=== PATIENT | female | born 1960 | race Caucasian/White ===

== ENCOUNTER 2021-01-21 12:28 | Emergency (ER) | payer SELFPAY ==
[~2021-01-21] VITALS: Ht 165.1 cm; Wt 63.5 kg
--- NOTE | 2021-01-21 12:42 | NUR ---
PT IS IN ROOM #1A. DR SAUCEDA EVALUATED THE PT.
[2021-01-21] MEDS ORDERED: IV NORMAL SALINE 500 ML BAG IV ONE (13:00)
[2021-01-21] MEDS ORDERED: ONDANSETRON 4 MG/2 ML VIAL IV ONE (13:00)
[2021-01-21] MEDS ORDERED: TDAP DIPH,PERTUSS,TET VAC/PF 0.5 ML DISP.SYRIN IM ONE ×2 (13:00→13:03)
[2021-01-21] MEDS ORDERED: LIDOCAINE 2%-EPI 1:100,000 20 ML VIAL TP ONE (13:00)
[2021-01-21] MEDS ORDERED: HYDROMORPHONE 1 MG/1 ML DISP.SYRIN IVP ONE (13:00)
[2021-01-21] MEDS ORDERED: LIDOCAINE 2%-EPI 1:100,000 20 ML VIAL ONE (13:03)
[2021-01-21] MEDS ORDERED: HYDROMORPHONE 1 MG/1 ML DISP.SYRIN ONE (13:04)
[2021-01-21] MEDS ORDERED: ONDANSETRON 4 MG/2 ML VIAL ONE (14:11)
[2021-01-21] MEDS ORDERED: IBUP-1955 PO (16:04)
[2021-01-21] MEDS ORDERED: OXYC-128 PO (16:04)
[2021-01-21] MEDS ORDERED: CEPH500C2 PO (16:07)
--- NOTE | 2021-01-21 16:22 | NUR ---
pt was d/c'D to home. d/c instructions given to the pt and to her son.
[2021-01-21 16:23] VITALS: BP 135/81
== END 2021-01-21 16:29 | disposition home or self-care (01) ==
LOC: ER 12:28
DX: S06.9X9A Unspecified intracranial injury with loss of consciousness of unspecified duration, initial encounter (principal); S16.1XXA Strain of muscle, fascia and tendon at neck level, initial encounter; S23.41XA Sprain of ribs, initial encounter; S61.411A Laceration without foreign body of right hand, initial encounter; V43.62XA Car passenger injured in collision with other type car in traffic accident, initial encounter; Y92.414 Local residential or business street as the place of occurrence of the external cause; R05 Cough; Z20.822 Contact with and (suspected) exposure to COVID-19; D32.0 Benign neoplasm of cerebral meninges; R40.2362 Coma scale, best motor response, obeys commands, at arrival to emergency department; R40.2142 Coma scale, eyes open, spontaneous, at arrival to emergency department; R40.2252 Coma scale, best verbal response, oriented, at arrival to emergency department; I51.7 Cardiomegaly
CPT/HCPCS: 12001; 12044; 70450; 71045; 72125; 72170; 73110; 73130; 87426; 90471; 90715; 96361; 96374; 96375; 99291; J1170; J2405; A4217; A4663; J7030

== ENCOUNTER 2021-01-24 11:46 | Emergency (ER) | payer OTHER ==
[~2021-01-24] VITALS: Ht 165.1 cm; Wt 63.5 kg
[~2021-01-24 11:46] MED LIST: CEPH500C2 PO; IBUP-1955 PO; OXYC-128 PO
--- NOTE | 2021-01-24 13:39 | NUR ---
PT WAS EVALUATED BY DR SANDOVAL. PT WAS D/C'd TO HOME. D/C INSTRUCTIONS GIVEN TO THE PT BY DR SANDOVAL.
[2021-01-24 13:40] VITALS: BP 137/81
== END 2021-01-24 13:41 | disposition home or self-care (01) ==
LOC: ER 11:46
DX: S61.411D Laceration without foreign body of right hand, subsequent encounter (principal); V49.60XD Unspecified car occupant injured in collision with unspecified motor vehicles in traffic accident, subsequent encounter; M79.641 Pain in right hand
CPT/HCPCS: A4663

== ENCOUNTER 2021-01-31 18:10 | Emergency (ER) | payer OTHER ==
[~2021-01-31] VITALS: Ht 162.6 cm; Wt 63.5 kg
--- NOTE | 2021-01-31 20:25 | NUR ---
Patient placed in a right thumb spica, wound site cleaned and wrapped with non-adherent, and non-conforming bandage. CMS intact
--- NOTE | 2021-01-31 20:31 | NUR ---
Patient discharged to home in stable condition. Written and verbal after care instructions given. Patient verbalizes understanding of instructions. Stressed follow up or return to ER for worsening s/s. Patient ambulated with steady gait.
[2021-02-01 03:36] VITALS: BP 131/73
== END 2021-01-31 20:35 | disposition home or self-care (01) ==
LOC: ER 18:11
DX: S61.011D Laceration without foreign body of right thumb without damage to nail, subsequent encounter (principal); V49.9XXD Car occupant (driver) (passenger) injured in unspecified traffic accident, subsequent encounter; F17.210 Nicotine dependence, cigarettes, uncomplicated
CPT/HCPCS: A4663